=== PATIENT | female | born 1945 | race Hispanic/Latino ===

== ENCOUNTER 2016-05-28 17:10 | Outpatient (CLI) | payer MEDICARE ==
--- NOTE | 2016-05-29 08:59 | Magnetic Resonance Report ---
MRI of the lumbar spine. History: Low back pain/radiculopathy. Procedure: Sagittal T1-weighted, T2-weighted, inversion recovery images, and axial T1 and T2-weighted images were used in the study. Findings: Comparison is made to previous study on March 26, 2016. Chronic fracture of the L1 superior endplate with associated retropulsion of the posterior vertebral body is unchanged compared to previous study. There is borderline central canal stenosis, but no interval change. The L1-2 and L2-3 disc levels are unremarkable. At L3-4, there is mild circumferential disc bulging with mild effacement of the anterior subarachnoid space. Facet joint DJD and arthropathy with minimal ligamentum flavum hypertrophy is unchanged. At the L4-5 level, there is a moderate broad-based disc bulge, eccentric to the left with central spur. There is mild left neural foraminal stenosis. At the L5-S1 level, there is a broad-based disc bulge with minimal effacement of the anterior subarachnoid space, but no central stenosis. There is bilateral foraminal stenosis, similar to the previous study. Multiple small right renal cysts are incidentally noted. Impression: 1. Chronic compression fracture of L1 superiorly with posterior retropulsion as described. The findings are stable with no significant central canal stenosis. 2. Multilevel spondylosis as detailed above with bilateral foraminal stenosis at L5-S1. Overall, the findings have not changed appreciably since the previous study in March of this year.
== END 2016-05-28 17:11 | disposition home or self-care (01) ==
LOC: MRI 17:10
PROVIDERS: ATTEND General Practice
DX: M48.07 Spinal stenosis, lumbosacral region (principal); M48.56XA Collapsed vertebra, not elsewhere classified, lumbar region, initial encounter for fracture; M47.897 Other spondylosis, lumbosacral region; M24.28 Disorder of ligament, vertebrae; M54.16 Radiculopathy, lumbar region; M12.88 Other specific arthropathies, not elsewhere classified, other specified site; N28.1 Cyst of kidney, acquired; X58.XXXA Exposure to other specified factors, initial encounter; Y93.89 Activity, other specified; Y92.89 Other specified places as the place of occurrence of the external cause; Y99.8 Other external cause status
CPT/HCPCS: 72148

== ENCOUNTER 2016-06-17 09:21 | Outpatient (CLI) | payer MEDICARE ==
--- NOTE | 2016-06-18 11:15 | Vascular Lab Report ---
RENAL ARTERY DUPLEX EXAM: REASON FOR EXAM: Renal artery stenosis/chronic renal failure. NOTE: Visualization is technically adequate. COMMENTS ON THE AORTA: The aorta is patent. Normal flow velocities are observed. No aneurysmal dilatation is noted. Mild atherosclerotic change is identified. The celiac artery is patent with normal flow velocity. The superior mesenteric artery is patent with normal flow velocity. COMMENTS ON THE RIGHT KIDNEY: The kidney measures 5.5 centimeters in greatest dimension. Kidney appears very small and atretic The renal artery is patent. Maximum systolic velocity is zero cm/sec. 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 . COMMENTS ON THE LEFT KIDNEY: The kidney measures 14.03 centimeters in greatest dimension. No obvious parenchymal abnormalities are noted. The renal artery is patent. Maximum systolic velocity is 168 cm/sec. This finding is consistent with less than 60% diameter reduction. Renal aortic index is 1.83. This finding is consistent with less than 60% diameter reduction. Overall findings are consistent with less than 60% diameter reduction in the renal artery. 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 LEFT KIDNEY: Less than 60% diameter reduction in the renal artery.
== END 2016-06-17 09:22 | disposition home or self-care (01) ==
LOC: VAS 09:21
PROVIDERS: ATTEND Internal Medicine Nephrology
DX: N18.3 Chronic kidney disease, stage 3 (moderate) (principal); N28.0 Ischemia and infarction of kidney
CPT/HCPCS: 93975